=== PATIENT | female | born 1995 | race African-American/Black ===

== ENCOUNTER 2017-07-11 18:04 | Emergency (ER) | payer BC ==
[~2017-07-11] VITALS: Ht 162.6 cm; Wt 71.9 kg
[2017-07-11 18:10] VITALS: TEMP 36.9; Ht 162.6 cm; Wt 71.9 kg
[2017-07-11 19:18] LABS: BLOOD UREA NITROGEN 6 mg/dl (7-18); CALCIUM 9.5 mg/dl (8.5-10.1); CARBON DIOXIDE 25 mmol/L (21-32); CREATININE 0.53 mg/dl (0.60-1.20); GLUCOSE 79 mg/dl (70-99); POTASSIUM 3.6 mmol/L (3.5-5.1); SODIUM 136 mmol/L (136-145)
[2017-07-11 19:43] LABS: HEMOGLOBIN 7.4 g/dL (12.0-16.0); MEAN CELL VOLUME 79.1 fL (80-100); MEAN CORPUSCULAR HEMOGLOBIN 26.6 pg (25-34); MEAN CORPUSCULAR HGB CONC 33.6 g/dl (32-36); NUCLEATED RED BLOOD CELL ABS 0.61 K/uL (0-0); PLATELET COUNT 81 K/uL (130-400); RED CELL DISTRIBUTION WIDTH CV 19.2 % (11.5-14.5); RED CELL DISTRIBUTION WIDTH SD 51.5 fL (36.4-46.3); WHITE BLOOD COUNT 6.26 K/uL (4.8-10.8)
--- NOTE | 2017-07-11 19:43 | EMERGENCY ROOM VISIT NOTE ---
History Report prepared by Lane: Elijah Conley Under the Supervision of: Dr. Ronald Kyle D.O. First contact with patient: 18:26 Chief Complaint: CHEST PAIN Stated Complaint: CHEST PAIN,LOW HEMAGLOBIN History of Present Illness The patient is a 22 year old female who presents to the Emergency Room with complaints of constant chest pain beginning five days ago. The patient has a history of sickle cell anemia. Her symptoms began with shortness of breath and fatigue five days ago. Her shortness of breath has improved since it began. The patient was seen at [facility] earlier today and was found to have a hemoglobin of 6.9. She has received blood transfusions in the past, but typically only during sickle cell crisis. She does not feel that she is in crisis, and states that she normally has joint pain, and fevers with it. The patient states that her normal hemoglobin is between 7 and 8. She denies any cough or urinary symptoms. Source of History: patient Onset: Five days ago Position: chest Timing: constant Associated Symptoms: + SOB (improving), + fatigue, No fevers, No cough, No urinary symptoms Note: The patient denies joint pain. Review of Systems See HPI for pertinent positives & negatives. A total of 10 systems reviewed and were otherwise negative. Past Medical & Surgical Medical Problems: (1) Sickle cell anemia Family History No pertinent family history stated. Social History Smoking Status: Never Smoker Occupation Status: [employer] student Current/Historical Medications Scheduled Cyanocobalamin (Vitamin B-12), 2,000 MCG PO DAILY Folic Acid (Folic Acid), 1 MG PO DAILY Hydroxyurea (Hydrea Cap), 1,500 MG PO 4XWK Hydroxyurea (Hydrea Cap), 1,000 MG PO 3XWK Lisinopril (Lisinopril), 20 MG PO DAILY Allergies Coded Allergies: Morphine (Verified Allergy, Unknown, Childhood allergy-"THINK HIVES", 07/11) Physical Exam Vital Signs Date Time Temp Pulse Resp B/P (MAP) Pulse Ox O2 Delivery O2 Flow Rate FiO2 07/11/17 19:16 78 07/11/17 18:10 36.9 61 20 126/78 99 Room Air Physical Exam CONSTITUTIONAL/VITAL SIGNS: Reviewed / noted above. GENERAL: Non-toxic in appearance. INTEGUMENTARY: Warm, dry, and [place]. HEAD: Normocephalic. EYES: without scleral icterus or trauma. ENT/OROPHARYNX: clear and moist. LYMPHADENOPATHY/NECK: Is supple without lymphadenopathy or meningismus. RESPIRATORY: Lungs clear and equal. CARDIOVASCULAR: Regular rate and rhythm. GI/ABDOMEN: Soft and nontender. No organomegaly or pulsatile mass. No rebound or guarding. Normal bowel sounds. EXTREMITIES: Warm and well perfused. BACK: No CVA tenderness. NEUROLOGICAL: Intact without focal deficits. PSYCHIATRIC: normal affect. MUSCULOSKELETAL: Normally developed with good muscle tone. Medical Decision & Procedures Laboratory Results 07/11/17 18:48 Red Blood Count 2.78, Mean Corpuscular Volume 79.1, Mean Corpuscular Hemoglobin 26.6, Mean Corpuscular Hemoglobin Concent 33.6, Neutrophils (%) (Auto) 31.9, Lymphocytes (%) (Auto) 61.0, Monocytes (%) (Auto) 4.5, Eosinophils (%) (Auto) 1.9, Basophils (%) (Auto) 0.5, Neutrophils # (Auto) 2.00, Lymphocytes # (Auto) 3.82, Monocytes # (Auto) 0.28, Eosinophils # (Auto) 0.12, Basophils # (Auto) 0.03 07/11/17 18:48 Test 07/11/17 18:48 White Blood Count 6.26 K/uL (4.8-10.8) Red Blood Count 2.78 M/uL (4.2-5.4) Hemoglobin 7.4 g/dL (12.0-16.0) Hematocrit 22.0 % (37-47) Mean Corpuscular Volume 79.1 fL (80-100) Mean Corpuscular Hemoglobin 26.6 pg (25-34) Mean Corpuscular Hemoglobin Concent 33.6 g/dl (32-36) Platelet Count 81 K/uL (130-400) Neutrophils (%) (Auto) 31.9 % Lymphocytes (%) (Auto) 61.0 % Monocytes (%) (Auto) 4.5 % Eosinophils (%) (Auto) 1.9 % Basophils (%) (Auto) 0.5 % Neutrophils # (Auto) 2.00 K/uL (1.4-6.5) Lymphocytes # (Auto) 3.82 K/uL (1.2-3.4) Monocytes # (Auto) 0.28 K/uL (0.11-0.59) Eosinophils # (Auto) 0.12 K/uL (0-0.5) Basophils # (Auto) 0.03 K/uL (0-0.2) RDW Standard Deviation 51.5 fL (36.4-46.3) RDW Coefficient of Variation 19.2 % (11.5-14.5) Immature Granulocyte % (Auto) 0.2 % Immature Granulocyte # (Auto) 0.01 K/uL (0.00-0.02) Nucleated RBC Absolute Count (auto) 0.61 K/uL (0-0) Nucleated Red Blood Cells % 9.8 % Platelet Estimate DECREASED Polychromasia 1+ Hypochromasia PRESENT Poikilocytosis PRESENT Anisocytosis PRESENT Spherocytes OCCASIONAL Sickle Cells OCCASIONAL Ovalocytes 1+ Katz-Grady Bodies OCCASIONAL Schistocytes 1+ Anion Gap 6.0 mmol/L (3-11) Est Creatinine Clear Calc Drug Dose 163.3 ml/min Estimated GFR () > 150.0 Estimated GFR (Non- 135.7 BUN/Creatinine Ratio 10.3 (10-20) Calcium Level 9.5 mg/dl (8.5-10.1) Laboratory results as stated above per my review. ED Course 182: Previous medical records were reviewed. The patient was evaluated in room B8. A complete history and physical examination was performed. 183: I spoke with the patients daughter, who is an internal medicine physician , over the phone. She requested a blood transfusion due to symptomatic anemia. Medical Decision Differential includes acute coronary syndrome, myocardial infarction, CVA, TIA, anemia, infection, pneumonia, UTI, pyelonephritis, poor nutrition, dehydration, electrolyte disturbance,hypoglycemia. This is a 22-year-old female who presents to the ED with a chief complaint of anemia. She reports that she has been having a little shortness of breath with exertion over the past week and occasional little chest pains today. She states that her hemoglobin was 6.9 at [facility] today. She usually runs in the high sevens-8 with her hemoglobin. They did do a chest x- ray [facility] and that was reportedly normal. They sent her here for transfusion. I spoke with the patient's sister who is an dry cure worker. She has had transfusions in the past and has had chest crises although the patient does not believe she is in a sickle crisis at this time. She is currently not having any chest pains at this time. Her vital signs are normal. She is afebrile. Her physical exam is normal. She is in no distress. The patient's hemoglobin here today is 7.4. White blood cell count was 6.2. Platelet count is 81. After discussing the results of the test with the patient , the patient and her physician sister felt comfortable not getting a transfusion. The patient has follow-up with her job interviewer next week. She did stop her hydroxyurea a few days ago and this may have improved her counts and may have been the reason for her symptoms. The patient will return for any concerns or worsening. Medication Reconcilliation Current Medication List: was personally reviewed by me Blood Pressure Screening Patient's blood pressure: Normal blood pressure Blood pressure disposition: Did not require urgent referral Impression Primary Impression: Anemia Additional Impression: Sickle cell disease Scribe Attestation The scribe's documentation has been prepared under my direction and personally reviewed by me in its entirety. I confirm that the note above accurately reflects all work, treatment, procedures, and medical decision making performed by me. Departure Information Dispostion Home / Self-Care Referrals No Doctor, Assigned (PCP) Patient Instructions My [facility] Additional Instructions Follow-up with your job interviewer. You hemoglobin today was 7.4, White blood cell count was 6.26 and platelet count was 81,000. Return for any concerns. Problem Qualifiers
[2017-07-11 19:44] LABS: BASO % 0.5 %; BASO ABS # 0.03 K/uL (0-0.2); EOS % 1.9 %; EOS ABS # 0.12 K/uL (0-0.5); IG# 0.01 K/uL (0.00-0.02); LYMPH ABS # 3.82 K/uL (1.2-3.4); MONO % 4.5 %; MONO ABS # 0.28 K/uL (0.11-0.59); NEUT % 31.9 %
[2017-07-11] MEDS ORDERED: FLV1 PO (19:45)
[2017-07-11] MEDS ORDERED: HYDR500C3 PO ×2 (19:45)
[2017-07-11] MEDS ORDERED: CYAN10005 PO (19:45)
[2017-07-11] MEDS ORDERED: LSN20 PO (19:45)
[2017-07-11 20:10] VITALS: BP 115/76; PULSE 65; O2SAT 99
== END 2017-07-11 20:21 | disposition home or self-care (01) ==
LOC: C.EDB 18:06 → C.EDC 20:21
DX: D57.1 Sickle-cell disease without crisis (principal); Z79.899 Other long term (current) drug therapy; Z88.5 Allergy status to narcotic agent